=== PATIENT | male | born 1935 | race Caucasian/White ===

== ENCOUNTER 2017-03-27 19:09 | Inpatient (IN) | payer MEDICARE, OTHER ==
[~2017-03-27] VITALS: Ht 188 cm; Wt 104.5 kg
[~2017-03-27 19:09] MED LIST: ATEN50TA41 PO; LISI5TAB PO; METF-366 PO; NITR0.4T SL; SIMV5TAB; SITA100T PO; WARF5TAB7 PO; simvastatin PO
[2017-03-27] MEDS ORDERED: SODIUM CHLORIDE FLUSH 10ML SYR IVF ONE (20:00)
[2017-03-27] MEDS ORDERED: SIMV40TA3 PO (20:04)
[2017-03-27] MEDS ORDERED: SIME80TA14 PO (20:04)
[2017-03-27] MEDS ORDERED: SULF1TAB24 PO (20:09)
[2017-03-27] MEDS ORDERED: WATER PILL PO (20:09)
[2017-03-27 20:21] LABS: ASPARTATE AMINO TRANSFERASE 15 U/L (15-37); BLOOD UREA NITROGEN 14 mg/dL (7-18)
[2017-03-27 20:26] LABS: IS PT STATUS REG ER OR PRE ER? YES
[2017-03-27] MEDS ORDERED: PHYTONADIONE 5 MG TABLET PO ONE (21:00)
[2017-03-27] MEDS ORDERED: PROMETHAZINE 25 MG/ML, 1ML IM PRN (22:30)
[2017-03-27] MEDS ORDERED: morphine SULFATE 10 MG/ML, 1ML IVPush PRN (22:30)
[2017-03-27] MEDS ORDERED: DEXTROSE 4 GM TAB.CHEW PO PRN (22:30)
[2017-03-27] MEDS ORDERED: ACETAMINOPHEN 325 MG TABLET PO PRN (22:30)
[2017-03-27] MEDS ORDERED: ONDANSETRON 2MG/ML, 2ML IVPush PRN (22:30)
[2017-03-27] MEDS ORDERED: NITROGLYCERIN 0.4 MG/SPRAY SL PRN (22:30)
[2017-03-27] MEDS ORDERED: GLUCAGON 1 MG IM PRN (22:30)
[2017-03-27] MEDS ORDERED: NITROGLYCERIN 0.4 MG BOTTLE (25 TABS) SL PRN (22:30)
[2017-03-27] MEDS ORDERED: LABETALOL 5MG/ML, 20ML IVPush PRN (22:30)
[2017-03-27] MEDS ORDERED: DEXTROSE 50%, 50ML SYRINGE IVPush PRN (22:30)
[2017-03-27] MEDS: INSULIN ASPART 100 UNITS/ML, PEN SQ-INSULIN SCH (22:30)
[2017-03-27 22:56] VITALS: BP 141/76
[2017-03-27 23:30] LABS: IS PT STATUS REG ER OR PRE ER? YES
[2017-03-28] MEDS: LACTOBACILLUS CHEW TABLET PO SCH ×4 (00:08→20:31)
[2017-03-28] MEDS: CEFTRIAXONE PMX 1GM/50ML 50 ML IV SCH (00:09)
[2017-03-28] MEDS: SODIUM CHLORIDE FLUSH 10ML SYR IVF SCH ×3 (00:09→20:32)
[2017-03-28] MEDS: METRONIDAZOLE PMX 500MG/100ML 100 ML IV SCH ×3 (01:14→17:49)
[2017-03-28 02:19] VITALS: BP 151/88
[2017-03-28 05:42] LABS: ASPARTATE AMINO TRANSFERASE 13 U/L (15-37); BLOOD UREA NITROGEN 12 mg/dL (7-18)
[2017-03-28 05:46] LABS: IS PT STATUS REG ER OR PRE ER? NO
[2017-03-28 06:37] VITALS: BP 133/85
[2017-03-28] MEDS: INSULIN ASPART 100 UNITS/ML, PEN SQ-INSULIN SCH ×4 (07:00→20:32)
[2017-03-28] MEDS: ATENOLOL 50 MG TABLET PO SCH (09:12)
[2017-03-28 12:15] VITALS: BP 144/86
[2017-03-28] MEDS ORDERED: SIMVASTATIN 40 MG TABLET PO SCH (21:00)
[2017-03-28 21:24] VITALS: BP 115/70
[2017-03-29] MEDS: CEFTRIAXONE PMX 1GM/50ML 50 ML IV SCH (00:08)
[2017-03-29] MEDS: METRONIDAZOLE PMX 500MG/100ML 100 ML IV SCH ×2 (00:52→08:40)
[2017-03-29 02:24] VITALS: BP 149/86
[2017-03-29] MEDS: INSULIN ASPART 100 UNITS/ML, PEN SQ-INSULIN SCH (07:00)
[2017-03-29 07:39] VITALS: BP 137/93
[2017-03-29] MEDS ORDERED: PNEUMOCOCCAL 23 VACCINE IM-VACC ONE (08:00)
[2017-03-29] MEDS: LACTOBACILLUS CHEW TABLET PO SCH (08:40)
[2017-03-29] MEDS: SODIUM CHLORIDE FLUSH 10ML SYR IVF SCH (08:40)
[2017-03-29] MEDS: ATENOLOL 50 MG TABLET PO SCH (08:40)
[2017-03-29] MEDS ORDERED: WARFARIN 5 MG TABLET PO-COUM ONE (18:00)
== END 2017-03-29 13:24 | disposition home or self-care (01) | DRG 291 ==
LOC: ED 21:01 → SUATTDRO 21:42 → EDIP 21:46 → 5SO 23:31
PROVIDERS: ADMIT Internal Medicine; ATTEND Internal Medicine
DX: I11.0 Hypertensive heart disease with heart failure (principal); N17.0 Acute kidney failure with tubular necrosis; D68.69 Other thrombophilia; J96.10 Chronic respiratory failure, unspecified whether with hypoxia or hypercapnia; N17.9 Acute kidney failure, unspecified; K57.92 Diverticulitis of intestine, part unspecified, without perforation or abscess without bleeding; K21.9 Gastro-esophageal reflux disease without esophagitis; I50.32 Chronic diastolic (congestive) heart failure; I25.110 Atherosclerotic heart disease of native coronary artery with unstable angina pectoris; D63.8 Anemia in other chronic diseases classified elsewhere; E11.9 Type 2 diabetes mellitus without complications; E78.5 Hyperlipidemia, unspecified; H26.9 Unspecified cataract; I25.10 Atherosclerotic heart disease of native coronary artery without angina pectoris; I08.1 Rheumatic disorders of both mitral and tricuspid valves; I48.2 Chronic atrial fibrillation; K80.20 Calculus of gallbladder without cholecystitis without obstruction; R19.7 Diarrhea, unspecified; M19.90 Unspecified osteoarthritis, unspecified site; T45.515A Adverse effect of anticoagulants, initial encounter; Z79.01 Long term (current) use of anticoagulants; Z86.718 Personal history of other venous thrombosis and embolism; Z86.73 Personal history of transient ischemic attack (TIA), and cerebral infarction without residual deficits; Z87.891 Personal history of nicotine dependence; Z95.5 Presence of coronary angioplasty implant and graft; Z99.81 Dependence on supplemental oxygen; J44.9 Chronic obstructive pulmonary disease, unspecified
CPT/HCPCS: 36415; 71010; 74176; 80053; 80061; 81003; 82962; 83735; 84100; 84443; 84484; 85025; 85379; 85610; 85730; 87324; 93005; 93306; 99285; J0696

== ENCOUNTER → 2018-03-17 | Outpatient (CLI) | payer MEDICARE, OTHER ==
[~2018-03-17] MED LIST changes: +SIME80TA14 PO; +SIMV40TA3 PO; +SULF1TAB24 PO; +WARF-36 PO; -WARF5TAB7 PO; +WATER PILL PO
== END ==
LOC: CVU 12:04
PROVIDERS: ATTEND Internal Medicine Cardiovascular Disease
DX: I35.0 Nonrheumatic aortic (valve) stenosis (principal); I07.1 Rheumatic tricuspid insufficiency; Z86.79 Personal history of other diseases of the circulatory system
CPT/HCPCS: 93306

== ENCOUNTER 2018-05-22 08:03 | Emergency (ER) | payer MEDICARE, OTHER ==
[~2018-05-22] VITALS: Ht 188 cm; Wt 107.0 kg
[2018-05-22 08:32] LABS: BASOPHILS # (AUTO) 0.02 x10^3/uL (0-0.1); BASOPHILS % (AUTO) 0 % (0-1); EOSINOPHILS # (AUTO) 0.12 x10^3/uL (0-0.4); EOSINOPHILS % (AUTO) 2 % (1-7); LYMPHOCYTES # (AUTO) 2.02 x10^3/uL (1-3.4); LYMPHOCYTES % (AUTO) 27 % (22-44); MD NO; MEAN CORPUSCULAR HEMOGLOBIN 31.1 pg (27.5-34.5); MEAN CORPUSCULAR HGB CONC 33.8 g/dL (33.2-36.2); MEAN CORPUSCULAR VOLUME 91.9 fL (81-97); MEAN PLATELET VOLUME 7.7 fL (7.4-10.4); MONOCYTES # (AUTO) 0.77 x10^3/uL (0.2-0.8); MONOCYTES % (AUTO) 10 % (2-9); NEUTROPHILS # (AUTO) 4.49 x10^3/uL (1.8-6.8); NEUTROPHILS % (AUTO) 61 % (42-75); PLATELET COUNT 208 x10^3/uL (130-400); RED BLOOD COUNT 4.14 x10^6/uL (4.38-5.82); RED CELL DISTRIBUTION WIDTH 13.7 % (9.4-14.8)
[2018-05-22 08:42] LABS: INTERNATIONAL NORMALIZED RATIO 2.87 (0.93-1.1)
[2018-05-22 08:44] LABS: ALBUMIN 3.7 g/dL (3.4-5.0); ANION GAP 3 mmol/L (5-15); CHLORIDE 107 mmol/L (98-107); CREATININE 1.16 mg/dL (0.7-1.3)
[2018-05-22 10:47] VITALS: BP 125/86
== END 2018-05-22 10:56 | disposition home or self-care (01) ==
LOC: ED 09:53
DX: S00.81XA Abrasion of other part of head, initial encounter (principal); R41.82 Altered mental status, unspecified; R79.1 Abnormal coagulation profile; E11.9 Type 2 diabetes mellitus without complications; I48.91 Unspecified atrial fibrillation; I10 Essential (primary) hypertension; I25.2 Old myocardial infarction; Z87.891 Personal history of nicotine dependence; Z86.73 Personal history of transient ischemic attack (TIA), and cerebral infarction without residual deficits; W01.0XXA Fall on same level from slipping, tripping and stumbling without subsequent striking against object, initial encounter; Y93.89 Activity, other specified; Y99.8 Other external cause status; Y92.009 Unspecified place in unspecified non-institutional (private) residence as the place of occurrence of the external cause
CPT/HCPCS: 36415; 70450; 80048; 82040; 85025; 85610; 99285

== ENCOUNTER → 2019-02-02 | Outpatient (CLI) | payer MEDICARE, OTHER | END | disposition home or self-care (01) | LOC: CVU 06:52 | PROVIDERS: ATTEND Internal Medicine Cardiovascular Disease | DX: I08.2 Rheumatic disorders of both aortic and tricuspid valves (principal); I48.91 Unspecified atrial fibrillation; I25.10 Atherosclerotic heart disease of native coronary artery without angina pectoris | CPT/HCPCS: 93306 ==

== ENCOUNTER 2019-02-28 10:33 | Day surgery (SDC) | payer MEDICARE, OTHER ==
[~2019-02-28] VITALS: Ht 188 cm; Wt 106.8 kg
[~2019-02-28 10:33] MED LIST changes: -NITR0.4T SL; +NITR0.4T41 SL
[2019-02-28] MEDS ORDERED: SODIUM CHLORIDE 0.9% 1,000 ML IV SCH ×2 (11:00→12:54)
[2019-02-28] MEDS ORDERED: HYDR12.59 PO (11:14)
[2019-02-28] MEDS ORDERED: SIMV40TA3 PO (11:16)
[2019-02-28] MEDS ORDERED: APIX5TAB PO (11:16)
[2019-02-28 11:17] VITALS: BP 131/79
[2019-02-28 11:50] LABS: BASOPHILS # (AUTO) 0.02 x10^3/uL (0-0.1); BASOPHILS % (AUTO) 0 % (0-1); EOSINOPHILS # (AUTO) 0.07 x10^3/uL (0-0.4); EOSINOPHILS % (AUTO) 1 % (1-7); LYMPHOCYTES # (AUTO) 1.32 x10^3/uL (1-3.4); LYMPHOCYTES % (AUTO) 24 % (22-44); MD NO; MEAN CORPUSCULAR HGB CONC 32.8 g/dL (33.2-36.2); MEAN CORPUSCULAR VOLUME 91.6 fL (81-97); MEAN PLATELET VOLUME 7.8 fL (7.4-10.4); MONOCYTES # (AUTO) 0.51 x10^3/uL (0.2-0.8); MONOCYTES % (AUTO) 9 % (2-9); NEUTROPHILS # (AUTO) 3.68 x10^3/uL (1.8-6.8); NEUTROPHILS % (AUTO) 66 % (42-75); PLATELET COUNT 161 x10^3/uL (130-400); RED BLOOD COUNT 4.28 x10^6/uL (4.38-5.82); RED CELL DISTRIBUTION WIDTH 13.8 % (9.4-14.8)
[2019-02-28] MEDS ORDERED: PLEASE ENTER HEIGHT AND WEIGHT MC SCH (12:00)
[2019-02-28 12:01] LABS: ANION GAP 8 mmol/L (5-15); CHLORIDE 107 mmol/L (98-107); CREATININE 1.18 mg/dL (0.7-1.3)
[2019-02-28] MEDS ORDERED: MIDAZOLAM 1 MG/ML, 2ML ONE (12:10)
[2019-02-28] MEDS ORDERED: LIDOCAINE-MPF 1%, 5ML ONE (12:11)
[2019-02-28] MEDS ORDERED: HEPARIN 1,000 UNITS/ML, 10ML ONE (12:11)
[2019-02-28] MEDS ORDERED: FENTANYL PF 100 MCG/2ML ONE (12:11)
[2019-02-28] MEDS ORDERED: VERAPAMIL 2.5 MG/ML, 2ML ONE (12:11)
== END 2019-02-28 15:10 | disposition home or self-care (01) ==
LOC: CACL 10:33
PROVIDERS: ATTEND Internal Medicine Cardiovascular Disease
DX: I25.10 Atherosclerotic heart disease of native coronary artery without angina pectoris (principal); I35.0 Nonrheumatic aortic (valve) stenosis; I48.91 Unspecified atrial fibrillation; I10 Essential (primary) hypertension; E78.5 Hyperlipidemia, unspecified; Z86.73 Personal history of transient ischemic attack (TIA), and cerebral infarction without residual deficits
CPT/HCPCS: 36415; 80048; 85025; 93454; 99156; C1769; C1894; J1644; J2250; J3010; Q9967

== ENCOUNTER 2019-04-24 07:56 | Inpatient (IN) | payer MEDICARE, OTHER ==
[~2019-04-24] VITALS: Ht 190.5 cm; Wt 108.1 kg
[~2019-04-24 07:56] MED LIST changes: +APIX5TAB PO; +CHLORHEXIDINE 15 ML UDC ONE; +HYDR12.59 PO
[2019-04-24] MEDS ORDERED: SODIUM CHLORIDE 0.9% 1,000 ML IV ONE (08:28)
[2019-04-24] MEDS ORDERED: CHLORHEXIDINE 15 ML UDC MM PRN (08:30)
[2019-04-24] MEDS ORDERED: ONDANSETRON 2MG/ML, 2ML IVPush PRN (08:30)
[2019-04-24 08:38] VITALS: BP 134/65
[2019-04-24 09:09] LABS: BASOPHILS # (AUTO) 0.02 x10^3/uL (0-0.1); BASOPHILS % (AUTO) 0 % (0-1); EOSINOPHILS # (AUTO) 0.08 x10^3/uL (0-0.4); EOSINOPHILS % (AUTO) 1 % (1-7); LYMPHOCYTES # (AUTO) 1.42 x10^3/uL (1-3.4); LYMPHOCYTES % (AUTO) 25 % (22-44); MD NO; MEAN CORPUSCULAR HEMOGLOBIN 30.8 pg (27.5-34.5); MEAN CORPUSCULAR HGB CONC 32.9 g/dL (33.2-36.2); MEAN CORPUSCULAR VOLUME 93.8 fL (81-97); MONOCYTES # (AUTO) 0.69 x10^3/uL (0.2-0.8); MONOCYTES % (AUTO) 12 % (2-9); NEUTROPHILS # (AUTO) 3.46 x10^3/uL (1.8-6.8); NEUTROPHILS % (AUTO) 61 % (42-75); PLATELET COUNT 161 x10^3/uL (130-400); RED BLOOD COUNT 3.89 x10^6/uL (4.38-5.82); RED CELL DISTRIBUTION WIDTH 14.7 % (9.4-14.8)
[2019-04-24 09:18] LABS: INTERNATIONAL NORMALIZED RATIO 1.14 (0.93-1.1); PROTHROMBIN TIME 11.9 Seconds (9.6-11.5)
[2019-04-24 09:39] LABS: ALBUMIN 3.7 g/dL (3.4-5.0); ANION GAP 5 mmol/L (5-15); CALCIUM 8.7 mg/dL (8.5-10.1); CHLORIDE 108 mmol/L (98-107)
[2019-04-24 09:43] LABS: ALANINE AMINOTRANSFERASE 16 U/L (12-78); ALKALINE PHOSPHATASE 47 U/L (45-117); BILIRUBIN,TOTAL 0.9 mg/dL (0.2-1.0); CREATININE 1.07 mg/dL (0.7-1.3); TOTAL PROTEIN 6.7 g/dL (6.4-8.2)
[2019-04-24] MEDS ORDERED: FENTANYL PF 250 MCG/5ML ONE (10:54)
[2019-04-24] MEDS ORDERED: ROCURONIUM 10MG/ML,5ML ONE (10:55)
[2019-04-24] MEDS ORDERED: SUCCINYLCHOLINE 20 MG/ML, 10ML ONE (10:55)
[2019-04-24] MEDS ORDERED: PHENYLEPHRINE 10 MG/ML ONE (10:55)
[2019-04-24] MEDS ORDERED: HEPARIN 1,000 UNITS/ML, 30ML ONE (10:55)
[2019-04-24] MEDS ORDERED: PROPOFOL 10 MG/ML, 20ML ONE (10:55)
[2019-04-24] MEDS ORDERED: ONDANSETRON 2MG/ML, 2ML ONE ×2 (10:57)
[2019-04-24] MEDS ORDERED: DEXAMETHASONE 4 MG/ML, 1ML ONE ×2 (10:57)
[2019-04-24] MEDS ORDERED: EPHEDRINE 50 MG/ML, 1ML ONE (11:01)
[2019-04-24] MEDS ORDERED: hydrALAzine 20 MG/ML, 1ML ONE (12:28)
[2019-04-24] MEDS: hydrALAzine 20 MG/ML, 1ML IVPush PRN ×2 (12:29→13:25)
[2019-04-24] MEDS ORDERED: DEXTROSE 4 GM TAB.CHEW PO PRN (12:30)
[2019-04-24] MEDS ORDERED: NITROGLYCERIN SINGLE TAB 0.4 MG SL SCH (12:30)
[2019-04-24] MEDS ORDERED: GLUCAGON 1 MG IM PRN (12:30)
[2019-04-24] MEDS ORDERED: DEXTROSE 50%, 50ML SYRINGE IVPush PRN (12:30)
[2019-04-24] MEDS ORDERED: LABETALOL 20 MG/4 ML IVPush PRN (12:30)
[2019-04-24] MEDS ORDERED: APIXABAN 5 MG TABLET ONE (13:09)
[2019-04-24] MEDS: ACETAMINOPHEN 325 MG TABLET PO PRN ×2 (13:12→22:17)
[2019-04-24] MEDS: APIXABAN 5 MG TABLET PO SCH ×2 (13:13→20:50)
[2019-04-24 14:00] VITALS: BP 132/79
[2019-04-24] MEDS ORDERED: NITROGLYCERIN 0.4 MG BOTTLE (25 TABS) SL PRN (15:00)
[2019-04-24 19:13] VITALS: BP 116/71
[2019-04-24] MEDS ORDERED: SIMVASTATIN 40 MG TABLET PO SCH ×2 (21:00)
[2019-04-24] MEDS: SODIUM CHLORIDE FLUSH 10ML SYR IVF SCH (21:00)
[2019-04-24] MEDS: INSULIN LISPRO 100 UNITS/ML, PEN SQ-INSULIN SCH (22:17)
[2019-04-25 01:40] VITALS: BP 118/68
[2019-04-25 05:38] LABS: BASOPHILS # (AUTO) 0.01 x10^3/uL (0-0.1); BASOPHILS % (AUTO) 0 % (0-1); EOSINOPHILS % (AUTO) 0 % (1-7); LYMPHOCYTES # (AUTO) 0.77 x10^3/uL (1-3.4); LYMPHOCYTES % (AUTO) 8 % (22-44); MD NO; MEAN CORPUSCULAR HEMOGLOBIN 31.3 pg (27.5-34.5); MEAN CORPUSCULAR HGB CONC 33.6 g/dL (33.2-36.2); MEAN CORPUSCULAR VOLUME 93.3 fL (81-97); MEAN PLATELET VOLUME 8.2 fL (7.4-10.4); MONOCYTES # (AUTO) 0.81 x10^3/uL (0.2-0.8); MONOCYTES % (AUTO) 8 % (2-9); NEUTROPHILS # (AUTO) 8.75 x10^3/uL (1.8-6.8); NEUTROPHILS % (AUTO) 85 % (42-75); PLATELET COUNT 147 x10^3/uL (130-400); RED BLOOD COUNT 4.01 x10^6/uL (4.38-5.82); RED CELL DISTRIBUTION WIDTH 14.3 % (9.4-14.8)
[2019-04-25 05:57] LABS: CHLORIDE 105 mmol/L (98-107)
[2019-04-25 06:03] LABS: ANION GAP 8 mmol/L (5-15); CALCIUM 8.7 mg/dL (8.5-10.1); CREATININE 1.07 mg/dL (0.7-1.3)
[2019-04-25 07:05] VITALS: BP 133/65
[2019-04-25] MEDS: INSULIN LISPRO 100 UNITS/ML, PEN SQ-INSULIN SCH ×2 (08:32→11:52)
[2019-04-25] MEDS: SODIUM CHLORIDE FLUSH 10ML SYR IVF SCH (08:32)
[2019-04-25] MEDS: APIXABAN 5 MG TABLET PO SCH (08:33)
[2019-04-25] MEDS ORDERED: HYDROCHLOROTHIAZIDE 25 MG TABLET PO SCH (09:00)
[2019-04-25] MEDS ORDERED: ATENOLOL 50 MG TABLET PO SCH (09:00)
[2019-04-25] MEDS ORDERED: ACET325T26 PO (11:10)
[2019-04-25] MEDS ORDERED: ATEN50TA41 PO (11:29)
== END 2019-04-25 14:00 | disposition home or self-care (01) | DRG 266 ==
LOC: ORIP 07:56 → CCU 12:16 → 5SO 14:00 → DCLOUNGE 04-25 13:48
PROVIDERS: ADMIT Internal Medicine Cardiovascular Disease; ATTEND Internal Medicine Cardiovascular Disease
PROC: B246ZZ4 Ultrasonography of Right and Left Heart, Transesophageal (ICD-10-PCS; 2019-04-24)
PROC: 03HY32Z Insertion of Monitoring Device into Upper Artery, Percutaneous Approach (ICD-10-PCS; 2019-04-24)
PROC: 02RF38Z Replacement of Aortic Valve with Zooplastic Tissue, Percutaneous Approach (ICD-10-PCS; principal; 2019-04-24 12:00)
DX: I35.0 Nonrheumatic aortic (valve) stenosis (principal); I50.33 Acute on chronic diastolic (congestive) heart failure; D68.69 Other thrombophilia; E11.9 Type 2 diabetes mellitus without complications; J44.9 Chronic obstructive pulmonary disease, unspecified; Z00.6 Encounter for examination for normal comparison and control in clinical research program; I48.2 Chronic atrial fibrillation; I25.10 Atherosclerotic heart disease of native coronary artery without angina pectoris; R00.1 Bradycardia, unspecified; I11.0 Hypertensive heart disease with heart failure; E78.5 Hyperlipidemia, unspecified; Z86.73 Personal history of transient ischemic attack (TIA), and cerebral infarction without residual deficits; Z87.891 Personal history of nicotine dependence; Z95.5 Presence of coronary angioplasty implant and graft
CPT/HCPCS: 33361; 36415; 80048; 80053; 82962; 85025; 85347; 85610; 85730; 86850; 86900; 86923; 87081; 93005; 93306; 93312; 93321; 93325; 93355; C1760; C1769; C1894; G0378; J1100; J1644; J2405; J2704; J3010; J0330; J0360; J1815; J2370; Q9967

== ENCOUNTER 2019-05-03 15:54 | Emergency (ER) | payer MEDICARE, OTHER ==
[~2019-05-03] VITALS: Ht 188 cm; Wt 107.5 kg
[2019-05-03 18:24] VITALS: BP 113/62
== END 2019-05-03 19:49 | disposition home or self-care (01) ==
LOC: ED 19:43
DX: I48.2 Chronic atrial fibrillation (principal); J44.9 Chronic obstructive pulmonary disease, unspecified; E11.9 Type 2 diabetes mellitus without complications; I10 Essential (primary) hypertension; I25.2 Old myocardial infarction; E78.5 Hyperlipidemia, unspecified; Z86.73 Personal history of transient ischemic attack (TIA), and cerebral infarction without residual deficits; Z87.891 Personal history of nicotine dependence
CPT/HCPCS: 36415; 71045; 80048; 82040; 83880; 84484; 85025; 93005; 99284

== ENCOUNTER 2019-05-10 13:15 | Inpatient (IN) | payer MEDICARE, OTHER ==
[~2019-05-10] VITALS: Ht 188 cm; Wt 103.0 kg
[2019-05-14 06:26] VITALS: BP 120/66
== END 2019-05-14 13:11 | disposition home or self-care (01) | DRG 309 ==
LOC: ED 14:50 → EDIP 14:51 → ED 14:56 → 5SO 17:41 → DCLOUNGE 05-14 12:54
PROVIDERS: ADMIT Internal Medicine; ATTEND Internal Medicine
DX: R00.1 Bradycardia, unspecified (principal); J96.11 Chronic respiratory failure with hypoxia; I50.32 Chronic diastolic (congestive) heart failure; D68.69 Other thrombophilia; R07.89 Other chest pain; I48.2 Chronic atrial fibrillation; E11.9 Type 2 diabetes mellitus without complications; E78.5 Hyperlipidemia, unspecified; I11.0 Hypertensive heart disease with heart failure; I25.10 Atherosclerotic heart disease of native coronary artery without angina pectoris; I25.2 Old myocardial infarction; I77.810 Thoracic aortic ectasia; J44.9 Chronic obstructive pulmonary disease, unspecified; M19.90 Unspecified osteoarthritis, unspecified site; Z96.641 Presence of right artificial hip joint; Z79.01 Long term (current) use of anticoagulants; Z82.49 Family history of ischemic heart disease and other diseases of the circulatory system; Z87.891 Personal history of nicotine dependence; Z95.2 Presence of prosthetic heart valve; Z95.5 Presence of coronary angioplasty implant and graft; Z99.81 Dependence on supplemental oxygen; Z86.73 Personal history of transient ischemic attack (TIA), and cerebral infarction without residual deficits; Z86.79 Personal history of other diseases of the circulatory system
CPT/HCPCS: 36415; 71045; 80048; 82040; 82962; 83036; 83735; 84100; 84484; 85025; 85610; 93005; 99285; G0378; J1815

== ENCOUNTER 2020-04-25 10:28 | Outpatient (CLI) | payer MEDICARE, OTHER ==
[~2020-04-25 10:28] MED LIST changes: +ACET325T26 PO; -CHLORHEXIDINE 15 ML UDC ONE; +SIMV40TA20 PO; -SIMV40TA3 PO
== END 2020-04-25 23:59 | disposition home or self-care (01) ==
LOC: CFH 10:28
PROVIDERS: ATTEND Internal Medicine Cardiovascular Disease
DX: I34.8 Other nonrheumatic mitral valve disorders (principal); R06.02 Shortness of breath; I65.29 Occlusion and stenosis of unspecified carotid artery
CPT/HCPCS: 93306

== ENCOUNTER 2021-03-20 15:51 | Emergency (ER) | payer MEDICARE, OTHER ==
[~2021-03-20] VITALS: Ht 188 cm; Wt 94.0 kg
[~2021-03-20 15:51] MED LIST changes: +SULF-23 PO; -SULF1TAB24 PO
[2021-03-20 16:25] LABS: BASOPHILS % (AUTO) 1 % (0-1); EOSINOPHILS % (AUTO) 1 % (1-7); LYMPHOCYTES % (AUTO) 27 % (22-44); MEAN CORPUSCULAR HEMOGLOBIN 31.3 pg (27.5-34.5); MEAN CORPUSCULAR HGB CONC 33.8 g/dL (33.2-36.2); MEAN PLATELET VOLUME 7.9 fL (7.4-10.4); MONOCYTES % (AUTO) 11 % (2-9); NEUTROPHILS % (AUTO) 60 % (42-75); PLATELET COUNT 174 x10^3/uL (130-400); RED BLOOD COUNT 4.04 x10^6/uL (4.38-5.82); RED CELL DISTRIBUTION WIDTH 14.6 % (9.4-14.8)
[2021-03-20 16:34] LABS: ALANINE AMINOTRANSFERASE 16 U/L (12-78); ALBUMIN 3.5 g/dL (3.4-5.0); ANION GAP 7 mmol/L (5-15); CHLORIDE 111 mmol/L (98-107); CREATININE 1.08 mg/dL (0.7-1.3)
[2021-03-20 16:36] LABS: ALKALINE PHOSPHATASE 52 U/L (45-117); BILIRUBIN,TOTAL 0.4 mg/dL (0.2-1.0); TOTAL PROTEIN 6.8 g/dL (6.4-8.2)
--- NOTE | 2021-03-20 17:06 | NUR ---
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
--- NOTE | 2021-03-20 17:20 | NUR ---
PT WC'D TO ROOM 31 W/ C/O R FLANK PAIN AND COFFEE COLORED URINE. DENIES ANY RED/BLACK STOOL. PT STATES SX STARTED ON TUESDAY X 2 DAYS AGO. PT RESTING ON GURNEY. R FLANK PAIN ON PALPATION. PT RESTING ON GURNEY. NADN. MONITORS APPLIED. VSS. WARM BLANKET PROVIDED. CALL LIGHT IN REACH. PT AWARE OF NEED FOR UA SAMPLE.
--- NOTE | 2021-03-20 17:49 | NUR ---
PT STRAIGHT CATH'D FOR BEST UA SAMPLE. PT AGREEABLE. PT FORESKIN NOTED TO BE VERY TIGHT. HEAD OF PENIS SENSITIVE AND PAINFUL TO TOUCH. STRAIGHT CATH COMPLETED. PT WOL WELL. ERP DR. ROCHA NOTIFIED OF FINDINGS W/ STRAIGHT CATH.
[2021-03-20 18:04] LABS: MICROSCOPIC INDICATED
[2021-03-20] MEDS ORDERED: OMNIPAQUE 350 MG/ML, 100ML BOTTLE ONE (18:06)
[2021-03-20 18:20] VITALS: BP 101/56
--- NOTE | 2021-03-20 18:20 | NUR ---
PT RESTING ON GURNEY. NADN. [place]PER.
--- NOTE | 2021-03-20 19:01 | NUR ---
REPORT GIVEN TO SAMY FITZPATRICK RN.
--- NOTE | 2021-03-20 19:25 | NUR ---
Patient given discharge instructions and they have confirmed that they understand the instructions. Patient ambulatory with steady gait.
== END 2021-03-20 19:26 | disposition home or self-care (01) ==
LOC: ED 19:20
DX: R31.0 Gross hematuria (principal); R10.9 Unspecified abdominal pain; J44.9 Chronic obstructive pulmonary disease, unspecified; I10 Essential (primary) hypertension; I48.91 Unspecified atrial fibrillation; E11.9 Type 2 diabetes mellitus without complications; E78.5 Hyperlipidemia, unspecified; Z86.73 Personal history of transient ischemic attack (TIA), and cerebral infarction without residual deficits
CPT/HCPCS: 36415; 74177; 80053; 81001; 83690; 85025; 87086; 99285; Q9967

== ENCOUNTER → 2021-04-23 | Outpatient (CLI) | payer MEDICARE, OTHER | END | disposition home or self-care (01) | LOC: CFH 11:07 | PROVIDERS: ATTEND Family Medicine | DX: G31.89 Other specified degenerative diseases of nervous system (principal); I67.82 Cerebral ischemia; F04 Amnestic disorder due to known physiological condition | CPT/HCPCS: 70450 ==